=== PATIENT | male | born 1955 | race Caucasian/White ===

== ENCOUNTER 2016-03-30 11:05 | Inpatient (IN) | payer OTHER ==
[~2016-03-30] VITALS: Ht 175.2 cm; Wt 116.6 kg
--- NOTE | ~2016-03-30 | PR ---
[place], [place] PROGRESS NOTE NAME: SANTIAGO MEIER [facility] #: [id number] UNIT #: [id number] ROOM: [id number] DOCTOR: CARLO MARINELLI MD BIRTHDATE: [birth year] DOS: 03/31/2016 CARDIOLOGY PROGRESS NOTE SUBJECTIVE: The patient was seen at his bedside today, 03/31/2016, for followup of chest pain and a COPD exacerbation. The patient still states that his pain is in his left anterior chest. It gets worse with a deep breath or cough. The pain is reproducible by palpation of his left anterior chest. He did have an exercise stress test at [facility] in [place] in 08/2015. He was able walk 10 minutes 11 seconds without any evidence for ischemia on his electrocardiogram. PHYSICAL EXAMINATION: VITAL SIGNS: Today, his pulse is 88 and regular, blood pressure is 103/58. He is afebrile. He weighs 116.6 kilograms. NECK: Supple. He has no jugular distention. Carotids are full. He has no bruits. He has no neck or supraclavicular masses. LUNGS: Respirations are unlabored. His chest is clear with decreased breath sounds at the bases. His left anterior chest is tender to palpation and this does reproduce his pain. HEART: Has a regular rhythm with an S4 gallop, but no S3 or murmur. ABDOMEN: Obese, but otherwise benign. EXTREMITIES: Showed no edema. LABORATORY DATA: His pains almost certainly are musculoskeletal in origin. They have been persistent for days, are reproducible by palpation and are not associated with any elevation in cardiac troponin. He did have an exercise stress test at the [facility] in August which showed no evidence for ischemia at a high workload. I do think that any further cardiac workup is indicated at this time. We will continue to follow him peripherally, but no other cardiac workup is planned at this time. I thank the hospitalist for asking our advice regarding his care. CARLO MARINELLI MD CM:PNTRANS [id number] CARLO MARINELLI MD 04/01/16 1103 interface
[~2016-03-30 11:05] MED LIST: AMLODIPINE BESY10 MG PO; ASPIRIN CHILDRE81 MG PO; ATORVASTATIN CA20 M1 PO; CETIRIZINE10 MG PO; CIMETIDINE400 M1 PO; COZAAR100 MG PO; FLUTICASON0.05 MG/AC NAS; GABAPENTIN600 MG PO; HYDR25T PO; K-TAB20 MEQ PO; METFORMIN1000 MG PO; NOVOLOG100 U/ML SC
[2016-03-30 11:14] VITALS: BP 171/88
[2016-03-30 11:56] LABS: BASO # 0.1 10*3/uL (0.0-0.1); BASO % 0.8 % (0.0-1.0); EOS # 0.3 10*3/uL (0.0-0.4); HEMATOCRIT 41.5 % (42.0-52.0); HEMOGLOBIN 13.8 g/dl (14.0-18.0); LYMPH # 2.7 10*3/uL (1.3-4.4); LYMPH % 32.4 % (27.0-41.0); MEAN CELL VOLUME 88.7 fl (80.0-94.0); MEAN CORPUSCULAR HGB 29.5 pg (27.0-31.0); MEAN CORPUSCULAR HGB CONC 33.3 g/dl (33.0-37.0); MEAN PLATELET VOLUME 9.6 fl (9.6-12.3); MONO # 0.6 10*3/uL (0.1-1.0); NEUT # 4.6 10*3/uL (2.3-7.9); NEUT % 56.3 % (47.0-73.0); PLATELET COUNT AUTOMATED 231 10*3/uL (130-400); RED BLOOD COUNT 4.68 10*6/uL (4.50-5.90); RED CELL DISTRI WIDTH 12.8 % (0-14.5); WHITE BLOOD COUNT 8.3 10*3/uL (4.8-10.8)
[2016-03-30 12:02] LABS: PROTHROMBIN TIME 10.2 SECONDS (9.0-12.4)
[2016-03-30 12:13] LABS: ALBUMIN 3.5 gm/dl (3.1-4.5); ALKALINE PHOSPHATASE 64 U/L (45-117); BILIRUBIN, TOTAL 0.4 mg/dl (0.2-1.0); BUN 17 mg/dl (7-24); CARBON DIOXIDE 26 mmol/L (21-32); CHLORIDE 107 mmol/L (98-107); EST GLOM FILT AFRICAN AMERICAN > 60 ml/min; GLUCOSE 112 mg/dL (65-99); MAGNESIUM 1.7 mg/dL (1.5-2.1); POTASSIUM 3.8 mmol/L (3.5-5.1); SGOT/AST 25 IU/L (3-35); SGPT/ALT 52 U/L (12-78); SODIUM 143 mmol/L (136-145); TOTAL PROTEIN 7.3 gm/dL (6.4-8.2)
[2016-03-30 12:14] LABS: TROPONIN I < 0.015 ng/ml (<0.5)
[2016-03-30 13:27] VITALS: BP 156/104
[2016-03-30 13:51] LABS: LA>2 REFLEX 2 HR DRAW NOW
[2016-03-30 14:07] VITALS: BP 154/84
[2016-03-30 14:20] LABS: LA>2 RFLX FOLLOW UP AT 2 HRS 2.1 mmol/L (0.4-2.0)
[2016-03-30 15:19] VITALS: BP 132/74
[2016-03-30 16:00] VITALS: BP 162/85
[2016-03-30 16:11] LABS: LA>2 REFLEX 4 HR DRAW NOW
[2016-03-30] MEDS ORDERED: LANTUS100 U/ML SC (18:25)
[2016-03-30] MEDS ORDERED: VENTOLIN H0.09 MG/AC INH (18:27)
[2016-03-30] MEDS ORDERED: MECLIZINE HCL25 M2 PO (18:27)
[2016-03-30] MEDS ORDERED: VITAMIN D5000 I3 PO (18:28)
[2016-03-30] MEDS ORDERED: TAMSULOSIN HCL0.4 MG PO (18:28)
[2016-03-30] MEDS ORDERED: GLIMEPIRIDE4 M1 PO (18:28)
[2016-03-30] MEDS ORDERED: KLOR-CON M2020 ME1 PO (18:30)
[2016-03-30 19:41] LABS: CKMB 1.4 ng/ml (0.5-3.6); CPK 116 U/L (39-308)
[2016-03-30 19:45] LABS: TROPONIN I < 0.015 ng/ml (<0.5)
[2016-03-30 20:00] VITALS: BP 132/73
[2016-03-31] VITALS: BP 129/77
[2016-03-31 00:46] LABS: CKMB 1.4 ng/ml (0.5-3.6); CPK 120 U/L (39-308); TROPONIN I < 0.015 ng/ml (<0.5)
[2016-03-31 06:42] LABS: BASO % 0.1 % (0.0-1.0); HEMATOCRIT 37.2 % (42.0-52.0); HEMOGLOBIN 12.4 g/dl (14.0-18.0); LYMPH # 0.9 10*3/uL (1.3-4.4); LYMPH % 8.9 % (27.0-41.0); MEAN CELL VOLUME 88.6 fl (80.0-94.0); MEAN CORPUSCULAR HGB 29.5 pg (27.0-31.0); MEAN CORPUSCULAR HGB CONC 33.3 g/dl (33.0-37.0); MONO # 0.5 10*3/uL (0.1-1.0); MONO % 4.2 % (3.0-9.0); NEUT # 9.2 10*3/uL (2.3-7.9); NEUT % 86.4 % (47.0-73.0); PLATELET COUNT AUTOMATED 234 10*3/uL (130-400); RED CELL DISTRI WIDTH 12.9 % (0-14.5); WHITE BLOOD COUNT 10.6 10*3/uL (4.8-10.8)
[2016-03-31 06:49] LABS: CKMB 1.2 ng/ml (0.5-3.6); CPK 106 U/L (39-308)
[2016-03-31 06:52] LABS: TROPONIN I < 0.015 ng/ml (<0.5)
[2016-03-31 07:11] LABS: FREE T4 0.98 ng/dl (0.76-1.46); MAGNESIUM 1.5 mg/dL (1.5-2.1); POTASSIUM 3.8 mmol/L (3.5-5.1); THYROID STIM HORMONE (HS) 0.715 uIU/ml (0.358-4.75)
[2016-03-31 07:49] LABS: HEMOGLOBIN A1c 7.5 % (4.8-5.6)
[2016-03-31 08:00] VITALS: BP 118/62
[2016-03-31 09:56] LABS: VITAMIN D, 25-HYDROXY 51.8 ng/mL (30-100)
[2016-03-31 09:57] LABS: FOLIC ACID 16.22 ng/mL (>5.38)
[2016-03-31 12:00] VITALS: BP 103/52
[2016-03-31 16:00] VITALS: BP 103/58
[2016-03-31 20:00] VITALS: BP 116/68
[2016-04-01] VITALS: BP 121/69
[2016-04-01 08:00] VITALS: BP 124/72
[2016-04-01 12:00] VITALS: BP 152/82
[2016-04-01 14:36] LABS: BUN 18 mg/dl (7-24); CARBON DIOXIDE 27 mmol/L (21-32); CHLORIDE 108 mmol/L (98-107); EST GLOM FILT AFRICAN AMERICAN > 60 ml/min; GLUCOSE 202 mg/dL (65-99); POTASSIUM 3.8 mmol/L (3.5-5.1); SODIUM 144 mmol/L (136-145)
== END 2016-04-01 15:43 | disposition home or self-care (01) | DRG 684 ==
LOC: ED 11:05 → EDHOLD 12:49 → 4E 12:49
PROVIDERS: Internal Medicine; Student in an Organized Health Care Education/Training Program
DX: N17.0 Acute kidney failure with tubular necrosis (principal); E11.40 Type 2 diabetes mellitus with diabetic neuropathy, unspecified; R07.89 Other chest pain; I10 Essential (primary) hypertension; E11.65 Type 2 diabetes mellitus with hyperglycemia; E78.5 Hyperlipidemia, unspecified; N40.1 Benign prostatic hyperplasia with lower urinary tract symptoms; K21.9 Gastro-esophageal reflux disease without esophagitis; Z98.890 Other specified postprocedural states; Z87.891 Personal history of nicotine dependence; Z82.49 Family history of ischemic heart disease and other diseases of the circulatory system; Z79.82 Long term (current) use of aspirin; Z79.4 Long term (current) use of insulin; Z79.84 Long term (current) use of oral hypoglycemic drugs; Z79.899 Other long term (current) drug therapy

== ENCOUNTER 2016-06-30 11:43 | Emergency (ER) | payer OTHER ==
[~2016-06-30] VITALS: Ht 175.2 cm; Wt 116.1 kg
[~2016-06-30 11:43] MED LIST changes: +GLIMEPIRIDE4 M1 PO; +KLOR-CON M2020 ME1 PO; +LANTUS100 U/ML SC; +MECLIZINE HCL25 M2 PO; +TAMSULOSIN HCL0.4 MG PO; +VENTOLIN H0.09 MG/AC INH; +VITAMIN D5000 I3 PO
[2016-06-30 12:53] LABS: BASO # 0.1 10*3/uL (0.0-0.1); EOS # 0.1 10*3/uL (0.0-0.4); EOS % 1.3 % (1.0-4.0); HEMATOCRIT 37.8 % (42.0-52.0); HEMOGLOBIN 12.6 g/dl (14.0-18.0); LYMPH # 2.5 10*3/uL (1.3-4.4); LYMPH % 30.3 % (27.0-41.0); MEAN CELL VOLUME 89.2 fl (80.0-94.0); MEAN CORPUSCULAR HGB 29.7 pg (27.0-31.0); MEAN CORPUSCULAR HGB CONC 33.3 g/dl (33.0-37.0); MEAN PLATELET VOLUME 9.1 fl (9.6-12.3); MONO # 0.5 10*3/uL (0.1-1.0); MONO % 5.7 % (3.0-9.0); NEUT % 61.2 % (47.0-73.0); PLATELET COUNT AUTOMATED 233 10*3/uL (130-400); RED BLOOD COUNT 4.24 10*6/uL (4.50-5.90); RED CELL DISTRI WIDTH 12.8 % (0-14.5); WHITE BLOOD COUNT 8.2 10*3/uL (4.8-10.8)
[2016-06-30 13:12] LABS: ALBUMIN 3.4 gm/dl (3.1-4.5); BUN 17 mg/dl (7-24); CARBON DIOXIDE 28 mmol/L (21-32); CHLORIDE 110 mmol/L (98-107); EST GLOM FILT AFRICAN AMERICAN > 60 ml/min; GLUCOSE 108 mg/dL (65-99); POTASSIUM 4.1 mmol/L (3.5-5.1); SGOT/AST 21 IU/L (3-35); SGPT/ALT 39 U/L (12-78); SODIUM 148 mmol/L (136-145); TOTAL PROTEIN 6.8 gm/dL (6.4-8.2)
[2016-06-30 13:17] LABS: ALKALINE PHOSPHATASE 55 U/L (45-117); BILIRUBIN, TOTAL 0.5 mg/dl (0.2-1.0); TROPONIN I < 0.015 ng/ml (<0.045)
[2016-06-30 14:48] LABS: BILIRUBIN NEGATIVE (NEGATIVE); BLOOD NEGATIVE (NEGATIVE); CLARITY CLEAR (CLEAR); COLOR YELLOW (YELLOW); GLUCOSE NEGATIVE (NEGATIVE); KETONE NEGATIVE (NEGATIVE); LEUKO ESTERASE 1+ (NEGATIVE); NITRITE NEGATIVE (NEGATIVE); PROTEIN NEGATIVE (NEGATIVE); UROBILINOGEN 0.2 E.U./dl (0.2-1.0)
[2016-06-30 14:54] LABS: BACTERIA 1+; EPITHELIAL CELLS 0-2; URINE REFLEX COMMENT YES (NO)
[2016-06-30] MEDS ORDERED: CIPRO500 MG PO ×2 (15:28→16:12)
== END 2016-06-30 15:55 | disposition home or self-care (01) ==
LOC: ED 11:43
PROVIDERS: Emergency Medicine
DX: N39.0 Urinary tract infection, site not specified (principal); I10 Essential (primary) hypertension; K21.9 Gastro-esophageal reflux disease without esophagitis; E78.5 Hyperlipidemia, unspecified; E11.9 Type 2 diabetes mellitus without complications; Z79.82 Long term (current) use of aspirin; Z79.899 Other long term (current) drug therapy

== ENCOUNTER 2017-03-01 11:11 | Emergency (ER) | payer OTHER ==
[~2017-03-01] VITALS: Ht 175.2 cm; Wt 113.4 kg
[~2017-03-01 11:11] MED LIST changes: +CIPRO500 MG PO; +LANTUS SOL100 UNIT/1 SC; -LANTUS100 U/ML SC
[2017-03-01 11:26] LABS: BASO # 0.1 10*3/uL (0.0-0.1); EOS # 0.5 10*3/uL (0.0-0.4); EOS % 4.4 % (1.0-4.0); HEMATOCRIT 38.7 % (42.0-52.0); HEMOGLOBIN 12.8 g/dl (14.0-18.0); LYMPH # 2.4 10*3/uL (1.3-4.4); LYMPH % 23.2 % (27.0-41.0); MEAN CORPUSCULAR HGB 29.4 pg (27.0-31.0); MEAN CORPUSCULAR HGB CONC 33.1 g/dl (33.0-37.0); MEAN PLATELET VOLUME 9.6 fl (9.6-12.3); MONO # 0.6 10*3/uL (0.1-1.0); NEUT # 6.8 10*3/uL (2.3-7.9); NEUT % 64.8 % (47.0-73.0); PLATELET COUNT AUTOMATED 227 10*3/uL (130-400); RED BLOOD COUNT 4.35 10*6/uL (4.50-5.90); RED CELL DISTRI WIDTH 12.9 % (0-14.5); WHITE BLOOD COUNT 10.4 10*3/uL (4.8-10.8)
[2017-03-01 11:36] LABS: ACT PARTIAL THROMBO TIME 23.3 SECONDS (20.8-31.5)
[2017-03-01 11:42] LABS: ALBUMIN 3.4 gm/dl (3.1-4.5); ALKALINE PHOSPHATASE 69 U/L (45-117); BUN 17 mg/dl (7-24); CHLORIDE 107 mmol/L (98-107); CREATININE 1.03 mg/dL (0.70-1.30); POTASSIUM 4.2 mmol/L (3.5-5.1); SGOT/AST 20 IU/L (3-35); SGPT/ALT 37 U/L (12-78); SODIUM 143 mmol/L (136-145)
[2017-03-01 11:44] LABS: TROPONIN I < 0.015 ng/ml (<0.045)
[2017-03-01] MEDS ORDERED: TRAZODONE50 MG PO (11:55)
[2017-03-01] MEDS ORDERED: CIMETIDINE400 M1 PO (11:56)
[2017-03-01] MEDS ORDERED: PREDNISONE20 M1 PO (13:26)
[2017-03-01] MEDS ORDERED: VIBRAMYCIN100 MG PO (13:26)
== END 2017-03-01 14:10 | disposition home or self-care (01) ==
LOC: ED 11:11
PROVIDERS: Emergency Medicine
DX: J44.1 Chronic obstructive pulmonary disease with (acute) exacerbation (principal); K21.9 Gastro-esophageal reflux disease without esophagitis; I10 Essential (primary) hypertension; E78.5 Hyperlipidemia, unspecified; G62.9 Polyneuropathy, unspecified; E11.9 Type 2 diabetes mellitus without complications; Z98.890 Other specified postprocedural states; Z87.891 Personal history of nicotine dependence; Z79.899 Other long term (current) drug therapy; Z79.82 Long term (current) use of aspirin; Z79.4 Long term (current) use of insulin

== ENCOUNTER → 2018-01-19 | Outpatient (CLI) | payer MEDICARE ==
[~2018-01-19] MED LIST changes: +BUPROPION HYDR100 M1 PO; +DOXYCYCLINE100 M3 PO; +OMEPRAZOLE MAGN20 MG PO; +ONGLYZA5 MG PO; +PREDNISONE20 M1 PO; +SERTRALINE HYD100 MG PO; +SYMB160 INH; +TRAZODONE50 MG PO; +VIBRAMYCIN100 MG PO
== END | disposition home or self-care (01) ==
LOC: RAD 10:32
DX: J18.9 Pneumonia, unspecified organism (principal); J44.9 Chronic obstructive pulmonary disease, unspecified; E11.9 Type 2 diabetes mellitus without complications; I10 Essential (primary) hypertension; Z87.891 Personal history of nicotine dependence

== ENCOUNTER → 2020-04-03 | Outpatient (CLI) | payer MEDICARE | END | disposition home or self-care (01) | LOC: COVID19 15:24 | PROVIDERS: ATTEND Student in an Organized Health Care Education/Training Program | DX: Z20.822 Contact with and (suspected) exposure to COVID-19 (principal) ==